=== PATIENT | male | born 1990 | race Caucasian/White ===

== ENCOUNTER → 2019-01-06 | Outpatient (REF) | payer OTHER ==
[~2019-01-06] MED LIST: ACY200 PO; CYC10 PO; HYDR-2946 PO; HYDR-3250 PO; HYDR1TAB PO; IBU600 PO; IBU800 PO; IBUP800T37 PO; KET10 PO; LEV500 PO; LOR5 PO; LOR5/325 PO; LOR7.5/325 PO; NO RTN MEDS; OXYC-489 PO; PER PO; TRA50 PO
[2019-01-06 10:27] LABS: PLATELET COUNT, AUTOMATED 194 K/uL (150-450)
== END ==
PROVIDERS: ATTEND Family Medicine
DX: R05 Cough (principal); R07.89 Other chest pain; R07.9 Chest pain, unspecified
CPT/HCPCS: 82040; 82247; 82310; 82374; 82435; 82565; 82947; 83880; 84075; 84132; 84155; 84295; 84450; 84460; 84484; 84520; 85025; 85379